=== PATIENT | female | born 1995 | race Caucasian/White ===

== ENCOUNTER 2017-05-01 18:26 | Inpatient (IN) | payer SELFPAY ==
[2017-05-01] MEDS ORDERED: Adacel (T-DAP) 0.5 ML VIAL ONE (18:32)
[2017-05-01] MEDS ORDERED: CEFAZOLIN/Water 2 GM/20 ML SYRINGE ONE (18:32)
[2017-05-01] MEDS ORDERED: hydrALAZINE 20 MG/ML VIAL SLOW IVP PRN (18:37)
[2017-05-01] MEDS ORDERED: Ondansetron HCl/PF 4 MG/2 ML Vial IVP PRN ×2 (18:37→20:49)
[2017-05-01] MEDS ORDERED: traMADol HCl 50 MG TAB PO PRN (18:37)
[2017-05-01] MEDS ORDERED: Dextrose 5% in Water 1,000 ML IV PRN (18:37)
[2017-05-01] MEDS ORDERED: Dextrose 50% Abboject 50 ML SYRINGE SLOW IVP PRN (18:37)
[2017-05-01] MEDS ORDERED: Ondansetron ODT 4 MG TAB PO PRN (18:37)
[2017-05-01] MEDS ORDERED: Midazolam HCl 2 mg/2 ml Vial ONE (18:40)
[2017-05-01 18:42] LABS: #Eosinphils 0.2 thou/uL (0.0-0.7); #Lymphocytes 2.9 thou/uL (1.20-3.40); #Monocytes 0.7 thou/uL (0.11-0.59); #Neutrophils 9.3 thou/uL (1.40-6.50); %Basophils 0.4 % (0.0-1.0); %Eosinophils 1.7 % (0.0-10.0); %Lymphocytes 22.1 % (21.0-51.0); %Monocytes 5.1 % (0.0-10.0); Hematocrit 37.4 % (36.0-47.0); Mean Platelet Volume 8.6 fL (7.4-10.4); Red Blood Cell (RBC) Count 4.18 mill/uL (4.20-5.40); White Blood Cell (WBC) Count 13.2 thou/uL (4.8-10.8)
[2017-05-01 18:50] LABS: PTT 25.5 SEC (22.9-36.1); Prothrombin Time 13.4 SEC (12.0-14.7)
[2017-05-01 18:58] LABS: ALT (SGPT) 9 U/L (8-55); AST (SGOT) 15 U/L (5-34); Alkaline Phosphatase 55 U/L (40-150); Anion Gap 12 mmol/L (10-20); BUN (Urea Nitrogen) 8 mg/dL (7.0-18.7); Bilirubin, Total 0.2 mg/dL (0.2-1.2); Calc. Creatinine Clearance 0 mL/min (70-130); Calcium 8.6 mg/dL (7.8-10.44); Carbon Dioxide 24 mmol/L (22-29); Chloride 108 mmol/L (98-107); Estimated GFR-MDRD Greater than 90; Globulin 2.4 g/dL (2.4-3.5); Protein, Total 6.4 g/dL (6.0-8.3)
[2017-05-01] MEDS ORDERED: Acetaminophen 500 MG TAB PO SCH (19:15)
[2017-05-01] MEDS ORDERED: Ketorolac Tromethamine 30 MG/ML VIAL ONE (19:21)
[2017-05-01] MEDS ORDERED: Propofol 200 MG/20 ML VIAL ONE (19:21)
[2017-05-01] MEDS ORDERED: Lidocaine 2% PF 10 ML AMP (For Epidural Use) ONE (19:21)
[2017-05-01] MEDS ORDERED: Dexamethasone 20 MG/5 ML VIAL ONE (19:21)
[2017-05-01] MEDS ORDERED: Glycopyrrolate 0.2 MG/ML 5 ML SYRINGE ONE (19:21)
[2017-05-01] MEDS ORDERED: Ondansetron HCl/PF 4 MG/2 ML Vial ONE (19:21)
[2017-05-01] MEDS ORDERED: Fentanyl 100 MCG/2 ML VIAL ONE ×2 (20:10→21:08)
[2017-05-01] MEDS ORDERED: Meperidine HCl/PF 25 MG/ML VIAL ONE (20:42)
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
[2017-05-01] MEDS ORDERED: Promethazine HCl 25 MG/ML VIAL SLOW IVP PRN (20:49)
[2017-05-01] MEDS ORDERED: Promethazine HCl 25 MG/ML VIAL IM PRN (20:49)
[2017-05-01] MEDS ORDERED: Promethazine HCl 25 MG/ML VIAL ONE (21:08)
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
[2017-05-01] MEDS: Sodium Chloride 0.9% 1,000 ML IV SCH (22:22)
[2017-05-01] MEDS: Senokot S 8.6-50 MG TAB PO SCH (22:22)
[2017-05-01] MEDS: Famotidine 20 MG TAB PO SCH (22:22)
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
[2017-05-01 22:50] VITALS: BMI 38.1
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
[2017-05-02] MEDS: Ketorolac Tromethamine 30 MG/ML VIAL IVP SCH ×4 (00:22→19:42)
[2017-05-02] MEDS: Acetaminophen 500 MG TAB PO SCH ×5 (00:22→16:47)
[2017-05-02] MEDS: CEFAZOLIN/Water 2 GM/20 ML SYRINGE SLOW IVP SCH ×3 (02:30→17:49)
[2017-05-02] MEDS: traMADol HCl 50 MG TAB PO PRN (02:38)
[2017-05-02] MEDS: Sodium Chloride 0.9% 1,000 ML IV SCH (04:48)
[2017-05-02 05:34] LABS: #Lymphocytes 0.9 thou/uL (1.20-3.40); #Monocytes 0.4 thou/uL (0.11-0.59); #Neutrophils 10.5 thou/uL (1.40-6.50); %Basophils 0.2 % (0.0-1.0); %Lymphocytes 7.2 % (21.0-51.0); %Monocytes 3.6 % (0.0-10.0); Hematocrit 34.6 % (36.0-47.0); Mean Platelet Volume 8.8 fL (7.4-10.4); Red Blood Cell (RBC) Count 3.84 mill/uL (4.20-5.40); White Blood Cell (WBC) Count 11.8 thou/uL (4.8-10.8)
[2017-05-02 06:01] LABS: Anion Gap 12 mmol/L (10-20); BUN (Urea Nitrogen) 7 mg/dL (7.0-18.7); Calc. Creatinine Clearance 225 mL/min (70-130); Carbon Dioxide 22 mmol/L (22-29); Chloride 104 mmol/L (98-107); Estimated GFR-MDRD Greater than 90; Magnesium 1.8 mg/dL (1.6-2.6); Phosphorus 2.8 mg/dL (2.3-4.7)
[2017-05-02] MEDS ORDERED: Sodium Chloride 0.9% 1,000 ML IV SCH (08:49)
[2017-05-02] MEDS ORDERED: Chloraseptic Spray 180 ml Bottle PO PRN (08:49)
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
[2017-05-02] MEDS: Famotidine 20 MG TAB PO SCH ×2 (09:53→19:54)
[2017-05-02] MEDS: Senokot S 8.6-50 MG TAB PO SCH ×2 (09:53→19:53)
[2017-05-02] MEDS: Morphine 4 MG/ML VIAL SLOW IVP PRN ×2 (09:53→19:50)
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
[2017-05-02] MEDS ORDERED: HYDROcodone/Acetaminophen 7.5/325 mg Tablet PO PRN (11:34)
[2017-05-02] MEDS ORDERED: Morphine 4 MG/ML VIAL SLOW IVP SCH (12:15)
--- NOTE | 2017-05-02 13:33 | PRG ---
DATE OF SERVICE: 05/02/2017 Please see Leila Santiago's note for today. SUBJECTIVE: Ms. Sherman is a 22-year-old female status post external fixator of open right tib/fib f racture. She is set to have a dressing change plus VAC placement today in the operating room. She has no complaints, otherwise. PHYSICAL EXAMINATION: VITAL SIGNS: Stable. She is afebrile. CHEST: Clear. HEART: Regular rate and rhythm. ABDOMEN: Soft, nontender. She has no obvious long bone deformity. ASSESSMENT: Open right tibia fibula fracture, status post external fixator. PLAN: Wound Care today. Plans per Ortho.
[2017-05-02] MEDS: HYDROcodone/Acetaminophen 7.5/325 mg Tablet PO PRN (15:48)
[2017-05-02] MEDS: Enoxaparin Sodium 40 MG/0.4 ML SYRINGE SC SCH (19:52)
[2017-05-03] MEDS: Ketorolac Tromethamine 30 MG/ML VIAL IVP SCH ×2 (00:26→05:31)
[2017-05-03] MEDS: Acetaminophen 500 MG TAB PO SCH ×2 (00:28→05:31)
[2017-05-03] MEDS ORDERED: Acetaminophen 500 MG TAB PO PRN (06:27)
[2017-05-03] MEDS ORDERED: Ibuprofen 800 MG TAB PO PRN (08:33)
[2017-05-03] MEDS: Famotidine 20 MG TAB PO SCH ×2 (08:45→20:43)
[2017-05-03] MEDS: HYDROcodone/Acetaminophen 7.5/325 mg Tablet PO PRN ×4 (08:45→23:19)
[2017-05-03] MEDS: Senokot S 8.6-50 MG TAB PO SCH ×2 (08:45→20:43)
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
[2017-05-03] MEDS: Enoxaparin Sodium 40 MG/0.4 ML SYRINGE SC SCH (20:42)
[2017-05-04] MEDS: HYDROcodone/Acetaminophen 7.5/325 mg Tablet PO PRN ×3 (07:49→19:15)
[2017-05-04] MEDS: Senokot S 8.6-50 MG TAB PO SCH ×2 (07:51→20:37)
[2017-05-04] MEDS: Famotidine 20 MG TAB PO SCH ×2 (07:51→20:37)
[2017-05-04] MEDS: Morphine 4 MG/ML VIAL SLOW IVP SCH (14:10)
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
[2017-05-04] MEDS: Enoxaparin Sodium 40 MG/0.4 ML SYRINGE SC SCH (20:37)
[2017-05-05] MEDS: HYDROcodone/Acetaminophen 7.5/325 mg Tablet PO PRN ×4 (02:11→21:27)
[2017-05-05] MEDS: Famotidine 20 MG TAB PO SCH ×2 (09:18→21:27)
[2017-05-05] MEDS: Senokot S 8.6-50 MG TAB PO SCH ×2 (09:18→21:27)
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
[2017-05-05] MEDS: Enoxaparin Sodium 40 MG/0.4 ML SYRINGE SC SCH (21:27)
[2017-05-06] MEDS: HYDROcodone/Acetaminophen 7.5/325 mg Tablet PO PRN ×4 (05:47→22:04)
[2017-05-06] MEDS: Senokot S 8.6-50 MG TAB PO SCH ×2 (08:36→20:12)
[2017-05-06] MEDS: Famotidine 20 MG TAB PO SCH ×2 (08:36→20:12)
[2017-05-06] MEDS: Morphine 4 MG/ML VIAL SLOW IVP SCH (10:13)
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
[2017-05-06] MEDS: Enoxaparin Sodium 40 MG/0.4 ML SYRINGE SC SCH (20:13)
[2017-05-07] MEDS: HYDROcodone/Acetaminophen 7.5/325 mg Tablet PO PRN ×3 (08:17→22:09)
[2017-05-07] MEDS: Famotidine 20 MG TAB PO SCH ×2 (08:17→22:01)
[2017-05-07] MEDS: Senokot S 8.6-50 MG TAB PO SCH ×2 (08:17→22:01)
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
[2017-05-07] MEDS: Enoxaparin Sodium 40 MG/0.4 ML SYRINGE SC SCH (22:02)
[2017-05-08] MEDS: Famotidine 20 MG TAB PO SCH ×2 (09:07→21:26)
[2017-05-08] MEDS: HYDROcodone/Acetaminophen 7.5/325 mg Tablet PO PRN ×2 (09:07→21:25)
[2017-05-08] MEDS: Senokot S 8.6-50 MG TAB PO SCH ×2 (09:07→21:26)
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
[2017-05-08] MEDS: Enoxaparin Sodium 40 MG/0.4 ML SYRINGE SC SCH (21:26)
[2017-05-09 05:37] LABS: #Basophils 0.1 thou/uL (0.0-0.2); #Eosinphils 0.3 thou/uL (0.0-0.7); #Lymphocytes 2.7 thou/uL (1.20-3.40); #Monocytes 0.7 thou/uL (0.11-0.59); %Basophils 0.6 % (0.0-1.0); %Eosinophils 3.9 % (0.0-10.0); %Lymphocytes 30.5 % (21.0-51.0); %Monocytes 8.2 % (0.0-10.0); Mean Platelet Volume 8.2 fL (7.4-10.4); Red Blood Cell (RBC) Count 3.56 mill/uL (4.20-5.40); White Blood Cell (WBC) Count 8.8 thou/uL (4.8-10.8)
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
[2017-05-09] MEDS: Senokot S 8.6-50 MG TAB PO SCH ×2 (08:12→23:54)
[2017-05-09] MEDS: Famotidine 20 MG TAB PO SCH ×2 (08:14→23:54)
[2017-05-09] MEDS: HYDROcodone/Acetaminophen 7.5/325 mg Tablet PO PRN (08:17)
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
[2017-05-09] MEDS ORDERED: Vancomycin HCl 500 MG VIAL ONE (17:48)
[2017-05-09] MEDS ORDERED: Midazolam HCl 2 mg/2 ml Vial ONE ×2 (18:09→18:55)
[2017-05-09] MEDS ORDERED: Sodium Chloride 0.9% 10 ML ONE (18:55)
[2017-05-09] MEDS ORDERED: Bupivacaine PF 0.5% 30 ML VIAL ONE (18:55)
[2017-05-09] MEDS ORDERED: Fentanyl 100 MCG/2 ML VIAL ONE ×3 (18:55→21:23)
[2017-05-09] MEDS ORDERED: Bacitracin Zinc Ointment 30 gm TUBE ONE (18:55)
[2017-05-09] MEDS ORDERED: Ondansetron HCl/PF 4 MG/2 ML Vial ONE (19:17)
[2017-05-09] MEDS ORDERED: Lidocaine 1% PF 5 ML VIAL ONE (19:17)
[2017-05-09] MEDS ORDERED: Propofol 200 MG/20 ML VIAL ONE (19:17)
[2017-05-09] MEDS ORDERED: Ketorolac Tromethamine 30 MG/ML VIAL ONE (19:17)
[2017-05-09] MEDS ORDERED: Dexamethasone 20 MG/5 ML VIAL ONE (19:17)
[2017-05-09] MEDS ORDERED: Sodium Chloride 0.9% 40 ML ONE (19:24)
[2017-05-09] MEDS ORDERED: Thrombin 5000 UNITS/5 ML VIAL ONE ×3 (19:56→20:22)
[2017-05-09] MEDS ORDERED: Promethazine HCl 25 MG/ML VIAL IM PRN ×2 (20:11→21:50)
[2017-05-09] MEDS ORDERED: Meperidine HCl/PF 25 MG/ML VIAL SLOW IVP PRN (20:11)
[2017-05-09] MEDS ORDERED: Ondansetron HCl/PF 4 MG/2 ML Vial IVP PRN (20:11)
[2017-05-09] MEDS ORDERED: Promethazine HCl 25 MG/ML VIAL SLOW IVP PRN (20:11)
[2017-05-09] MEDS ORDERED: Pregabalin 50 MG CAP PO SCH ×2 (21:45→22:00)
[2017-05-09] MEDS ORDERED: HYDROcodone/Acetaminophen 7.5/325 mg Tablet PO PRN ×2 (21:47)
[2017-05-09] MEDS ORDERED: Meperidine HCl/PF 25 MG/ML VIAL IM PRN (21:48)
[2017-05-09] MEDS ORDERED: Morphine 4 MG/ML VIAL SLOW IVP PRN (21:51)
[2017-05-09] MEDS ORDERED: Vancomycin HCl 750 MG in Sodium Chloride 0.9% 250 ML 250 ML IVPB SCH (22:00)
[2017-05-09] MEDS ORDERED: Ketorolac Tromethamine 30 MG/ML VIAL IVP SCH (23:59)
[2017-05-10] MEDS: Ketorolac Tromethamine 30 MG/ML VIAL IVP SCH ×3 (02:31→14:48)
[2017-05-10] MEDS ORDERED: Pregabalin 50 MG CAP PO SCH ×2 (04:00→12:00)
[2017-05-10] MEDS ORDERED: Vancomycin HCl 750 MG in Sodium Chloride 0.9% 250 ML 250 ML IVPB SCH (06:00)
[2017-05-10] MEDS: Famotidine 20 MG TAB PO SCH (08:00)
[2017-05-10] MEDS: Senokot S 8.6-50 MG TAB PO SCH (08:01)
[2017-05-10] MEDS: traMADol HCl 50 MG TAB PO PRN (08:42)
--- NOTE | 2017-05-10 14:44 | OP ---
DATE OF PROCEDURE: 05/09/2017 PREOPERATIVE DIAGNOSIS: Right leg wound, overlying a grade II tibia fracture, already undergone 2 de bridements and internal fixation with intramedullary nail. POSTOPERATIVE FINDINGS: 1. Hematoma approximately 15 mL on the very distal posterior edge of the wound. 2. Wound edge necrosis and underlying necrosis of a patch of skin that led to a wound size initially of 5 x 3 cm and ended up being 14 x 10 before we found bleeding and good tissue and could completely evacuate the hematoma that was found. PROCEDURES: Therefore, procedures as follows: 1. A 140 cm2 split-thickness skin graft harvest from the right anterior lateral thigh and placed on the right medial and posterior medial leg. 2. Evacuation of hematoma approximately 15 mL. 3. Debridement of wound down to, but not penetrating the fascia[place] [address] depth using t he following instruments. 1. Forsyth blade. 2. A 11-blade knife. 3. Tenotomy scissors. 4. Grimes scissors. A. Bovie. B. Technique Excisional. C. Findings, minimal muscle edge necrosis, but marked amount of fat necrosis and a surrounding hemat saloni underneath these. The that led to wound flap edge necrosis of 15 mL. 4. No gross infection found and circulation remained intact underneath with excellent bleeding at th e site once the debridement was completed. SPECIMEN REMOVED: Necrotic fat with deep soleus and gastroc fascia underneath intact. ESTIMATED BLOOD LOSS: 50 mL TOURNIQUET TIME: Zero. INDICATIONS: The patient returns for stage wound management, her third debridement with open leg wou nd, which over the head and measured nail by my partner, Dr. Loya, and it was found that the soleus muscle completely covered the tibia, so there was no bone seen and we did not have to violate the mi dline for debridement back to bleeding bed. No gross defects found. DESCRIPTION OF PROCEDURE: After successful general LMA technique by MAC anesthesia, limb was prepped and draped. We prepped all the way up to the inguinal line because we knew we had to make a large s kin graft. This was especially after we saw that the central portion of the wound itself that was op ened was only 5 x 3 cm. It was surrounded by an area of at least 12 x 12 full skin edge necrosis. W hen we began debriding the edge, the anterior portion of the edge of the tenuous wound within normal skin was easily resected leaving a rim of normal skin over 2 cm away from the fracture site. Underne ath this distally with a hematoma with eunice fat necrosis and this had to be debrided completely thro ugh a leading edge, which was clean. Then, we performed the same type of debridement, excisional cecil hnique, removal of hematoma on the entire flap and now the soleus was visible, only intact fat was le ft, and there was marked amount of available skin on the proximal thigh, which had been prepped. We irrigated this area with 3 liters of normal saline and Pulsavac pressure had excellent bleeding, we t hen harvested a total of 140 cm2 to fill the 10 x 14 wound defect and this was done with a Ny hoa matome that was powered depth to 0.20 cm without complication. We will have to harvest it from the r ight anterior lateral thigh and placed in it on the open wound, we were able to see thrombin-soaked G elfoam placed on the donor site now. We then carefully stapled the skin graft down to include filling in defects that might be left becaus e there was somewhat asymmetrical fat content in the lower leg. The staple used to secure this skin graft and it covered the entire region without undue tension, thrombin-soaked Gelfoam on both the cut s made for the skin graft, and then the patient had a thrombin-soaked Gelfoam covered with a Tegaderm held on by Mastisol, bulky dressing applied over the leg, and then placed in a plaster splint that w as to maintain ankle position because it will be at least 6 weeks before any kind of motion will be p ut on his leg. The patient then had the skin graft that was applied to the right thigh bolstered down to appropriate ly fill out any depth defects, mineral oil over bacitracin and Adaptic was placed on this, and then t he patient left the operating room without evidence of anesthetic or operative complication and a sug ar tong posterior splint was applied.
[2017-05-10 16:06] VITALS: BP 103/72; TEMP 98.2
[2017-05-10] MEDS ORDERED: Vancomycin HCl 750 MG, Admixture Fee 1 EACH in Sodium Chloride 0.9% 250 ML 250 ML IVPB SCH (20:00)
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
[2017-05-15] MEDS ORDERED: Ibuprofen 800 MG TAB PO PRN (06:00)
== END 2017-05-10 16:51 | disposition home or self-care (01) | DRG 464 ==
LOC: EDBD 18:26 → ERS 18:26 → SURG A 18:37
PROVIDERS: ADMIT Surgery; ATTEND Surgery
PROC: 0QBG0ZZ Excision of Right Tibia, Open Approach (ICD-10-PCS; 2017-05-01)
PROC: 0QSG06Z Reposition Right Tibia with Intramedullary Internal Fixation Device, Open Approach (ICD-10-PCS; 2017-05-01)
PROC: 0HRKX74 Replacement of Right Lower Leg Skin with Autologous Tissue Substitute, Partial Thickness, External Approach (ICD-10-PCS; principal; 2017-05-09)
PROC: 0HBHXZZ Excision of Right Upper Leg Skin, External Approach (ICD-10-PCS; 2017-05-09)
PROC: 0JBN0ZZ Excision of Right Lower Leg Subcutaneous Tissue and Fascia, Open Approach (ICD-10-PCS; 2017-05-09)
DX: S82.301 Unspecified fracture of lower end of right tibia (principal); L76.32 Postprocedural hematoma of skin and subcutaneous tissue following other procedure; I96 Gangrene, not elsewhere classified; L76.82 Other postprocedural complications of skin and subcutaneous tissue; E66.9 Obesity, unspecified; Y93.I9 Activity, other involving external motion; Z68.38 Body mass index [BMI] 38.0-38.9, adult; V86.65XA Passenger of 3- or 4- wheeled all-terrain vehicle (ATV) injured in nontraffic accident, initial encounter; F17.210 Nicotine dependence, cigarettes, uncomplicated; G89.11 Acute pain due to trauma; Z23 Encounter for immunization; F41.9 Anxiety disorder, unspecified; F32.9 Major depressive disorder, single episode, unspecified
CPT/HCPCS: 36415; 76001; 80048; 80053; 80307; 82150; 83735; 84100; 84703; 85025; 85610; 85730; 86850; 86900; 86901; 90471; 90715; 96374; 99406; A4216; C1713; C1769; G0390; G8978-GP-CL; G8979-GP-CJ; G8987-GO-CK; G8988-GO-CK; G8989-GO-CK; J1100; J1650; J1885; J2001; J2175; J2250; J2270; J2405; J2550; J2704; J3010; J3370; J3490; J7050; L4386; S0020

== ENCOUNTER 2017-07-14 20:52 | Inpatient (IN) | payer MEDICAID, OTHER ==
[2017-07-14 21:46] LABS: #Lymphocytes 1.3 thou/uL (1.20-3.40); #Monocytes 0.9 thou/uL (0.11-0.59); #Neutrophils 7.6 thou/uL (1.40-6.50); %Basophils 0.1 % (0.0-1.0); %Eosinophils 0.1 % (0.0-10.0); %Lymphocytes 13.2 % (21.0-51.0); %Monocytes 9.1 % (0.0-10.0); %Neutrophils 77.5 % (42.0-75.0); Hemoglobin 12.9 g/dL (12.0-16.0); Mean Corpuscular HGB CONC 33.2 g/dL (32.0-36.0); Mean Corpuscular Hemoglobin 27.2 pg (27.0-31.0); Mean Corpuscular Volume 81.9 fl (81.0-99.0); Mean Platelet Volume 10.2 fL (7.4-10.4); Platelet Count 181 thou/uL (130-400); RBC Distribution Width 13.3 % (11.5-14.5); Red Blood Cell (RBC) Count 4.73 mill/uL (4.20-5.40); White Blood Cell (WBC) Count 9.9 thou/uL (4.8-10.8)
[2017-07-14] MEDS ORDERED: Ondansetron HCl/PF 4 MG/2 ML Vial ONE (22:05)
[2017-07-14] MEDS ORDERED: Morphine 4 MG/ML Carpuject ONE (22:05)
[2017-07-14 22:07] LABS: ALT (SGPT) 23 U/L (8-55); AST (SGOT) 37 U/L (5-34); Alkaline Phosphatase 115 U/L (40-150); Anion Gap 17 mmol/L (10-20); BUN (Urea Nitrogen) 6 mg/dL (7.0-18.7); Bilirubin, Total 0.8 mg/dL (0.2-1.2); Calc. Creatinine Clearance 0 mL/min (70-130); Calcium 9.3 mg/dL (7.8-10.44); Carbon Dioxide 22 mmol/L (22-29); Chloride 99 mmol/L (98-107); Estimated GFR-MDRD Greater than 90; Globulin 3.4 g/dL (2.4-3.5); Glucose 97 mg/dL (70-105); Potassium 3.4 mmol/L (3.5-5.1); Protein, Total 7.4 g/dL (6.0-8.3); Sodium 135 mmol/L (136-145)
[2017-07-14] MEDS ORDERED: Piperacillin/Tazobactam 4.5 GM in Sodium Chloride 0.9% 100 ML IVPB SCH (22:15)
[2017-07-15] MEDS ORDERED: Ondansetron ODT 4 MG TAB SL PRN (00:09)
[2017-07-15] MEDS ORDERED: Ondansetron HCl/PF 4 MG/2 ML Vial IVP PRN ×2 (00:09→12:20)
[2017-07-15] MEDS ORDERED: Morphine 2 MG/ML SYRINGE SLOW IVP PRN ×2 (00:10→00:11)
[2017-07-15] MEDS: Sodium Chloride 0.9% 1,000 ML IV SCH ×2 (00:35→11:34)
[2017-07-15 01:30] VITALS: BMI 36.8
[2017-07-15] MEDS ORDERED: Piperacillin/Tazobactam 4.5 GM in Sodium Chloride 0.9% 100 ML IVPB SCH (06:00)
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
--- NOTE | 2017-07-15 08:31 | RAD ---
THREE VIEES OF THE RIGHT FORELEG: INDICATION: History of tibia fracture. COMPARISON: Prior exam dated 05/01/17. FINDINGS: Since the comparison examination, there has been interval placement of an intramedullary bhavik. The fr acture alignment is near anatomic. The fracture demonstrates some peripheral bone callus formation w ithout complete healing. The distal interlock screw is fractured. There is soft tissue swelling jaron rounding the fracture site and previously seen wound defect involving the posterolateral aspect of th e distal foreleg. Superimposed infection cannot be excluded. IMPRESSION: 1. Ununited comminuted distal tibia fracture. 2. Fractured distal interlock screw of the intramedullary bhavik. 3. Soft tissue swelling seen surrounding the fracture site and site of the open wound involving the posterolateral aspect of the distal right foreleg on the prior examination dated 05/01/17. Superimpo sed infection cannot be entirely excluded. POS: KIYA
[2017-07-15] MEDS ORDERED: Fentanyl 100 MCG/2 ML VIAL ONE ×2 (11:20→13:15)
[2017-07-15] MEDS ORDERED: Midazolam HCl 2 mg/2 ml Vial ONE (11:20)
[2017-07-15] MEDS ORDERED: Neomycin-Polymyxin 1 ML AMP ONE (11:27)
[2017-07-15] MEDS ORDERED: Ondansetron HCl/PF 4 MG/2 ML Vial ONE ×3 (11:47→14:04)
[2017-07-15] MEDS ORDERED: HYDROcodone/Acetaminophen 10/325 mg Tablet PO PRN (11:56)
[2017-07-15] MEDS ORDERED: traMADol HCl 50 MG TAB PO PRN (11:57)
[2017-07-15] MEDS ORDERED: Piperacillin/Tazobactam 3.375 GM in Sodium Chloride 0.9% 100 ML IVPB SCH ×2 (12:00→14:00)
[2017-07-15] MEDS ORDERED: HYDROmorphone 2 MG/ML VIAL SLOW IVP PRN (12:20)
[2017-07-15] MEDS ORDERED: Meperidine HCl/PF 25 MG/ML VIAL SLOW IVP PRN (12:20)
[2017-07-15] MEDS ORDERED: Promethazine HCl 25 MG/ML VIAL IM/IV PRN (12:20)
[2017-07-15] MEDS ORDERED: Lidocaine 1% PF 5 ML VIAL ONE (14:04)
[2017-07-15] MEDS ORDERED: Ketorolac Tromethamine 30 MG/ML VIAL ONE (14:04)
[2017-07-15] MEDS ORDERED: Propofol 200 MG/20 ML VIAL ONE (14:04)
[2017-07-15] MEDS ORDERED: Dexamethasone 20 MG/5 ML VIAL ONE (14:04)
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
[2017-07-15] MEDS: Piperacillin/Tazobactam 3.375 GM in Sodium Chloride 0.9% 100 ML IVPB SCH (17:32)
[2017-07-15] MEDS: Vancomycin HCl 1 GM in Premix Bag 1 BAG IVPB SCH (21:00)
[2017-07-16] MEDS: Piperacillin/Tazobactam 3.375 GM in Sodium Chloride 0.9% 100 ML IVPB SCH ×3 (00:34→13:00)
[2017-07-16 04:49] LABS: #Lymphocytes 0.6 thou/uL (1.20-3.40); #Monocytes 0.6 thou/uL (0.11-0.59); #Neutrophils 6.4 thou/uL (1.40-6.50); %Basophils 0.1 % (0.0-1.0); %Lymphocytes 8.3 % (21.0-51.0); %Monocytes 8.4 % (0.0-10.0); %Neutrophils 83.1 % (42.0-75.0); Hemoglobin 10.5 g/dL (12.0-16.0); Mean Corpuscular HGB CONC 32.4 g/dL (32.0-36.0); Mean Corpuscular Hemoglobin 26.9 pg (27.0-31.0); Mean Corpuscular Volume 83.1 fl (81.0-99.0); Mean Platelet Volume 11.2 fL (7.4-10.4); Platelet Count 154 thou/uL (130-400); White Blood Cell (WBC) Count 7.7 thou/uL (4.8-10.8)
[2017-07-16] MEDS: Vancomycin HCl 1 GM in Premix Bag 1 BAG IVPB SCH ×2 (09:05→21:06)
[2017-07-16 20:36] LABS: Vancomycin, Trough 20.5 ug/mL
[2017-07-16] MEDS: Enoxaparin Sodium 40 MG/0.4 ML SYRINGE SC SCH (21:06)
[2017-07-17] MEDS: Morphine 2 MG/ML SYRINGE SLOW IVP PRN ×2 (02:34→23:46)
[2017-07-17] MEDS: Vancomycin HCl 1 GM in Premix Bag 1 BAG IVPB SCH (09:58)
[2017-07-17 21:12] LABS: Vancomycin, Trough 31.4 ug/mL
[2017-07-17] MEDS: Enoxaparin Sodium 40 MG/0.4 ML SYRINGE SC SCH (23:45)
[2017-07-18] MEDS: Vancomycin HCl 1 GM in Premix Bag 1 BAG IVPB SCH (00:21)
[2017-07-18] MEDS: Ondansetron HCl/PF 4 MG/2 ML Vial SLOW IVP PRN (04:26)
[2017-07-18] MEDS ORDERED: Fentanyl 100 MCG/2 ML VIAL ONE ×2 (06:20→08:36)
[2017-07-18] MEDS ORDERED: Maxitrol 0.1% Opth Oint 3.5 GM TUBE ONE (06:37)
[2017-07-18] MEDS ORDERED: Neomycin-Polymyxin 1 ML AMP ONE ×2 (06:40→07:32)
[2017-07-18] MEDS ORDERED: Sodium Chloride 0.9% 10 ML ONE (06:54)
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
[2017-07-18] MEDS ORDERED: Promethazine HCl 25 MG/ML VIAL SLOW IVP PRN (08:44)
[2017-07-18] MEDS ORDERED: Promethazine HCl 25 MG/ML VIAL IM PRN (08:44)
[2017-07-18] MEDS ORDERED: Ondansetron HCl/PF 4 MG/2 ML Vial IVP PRN (08:44)
[2017-07-18] MEDS ORDERED: Vancomycin HCl 1 GM in Premix Bag 1 BAG IVPB SCH (09:00)
[2017-07-18] MEDS ORDERED: Metoclopramide HCl 10 MG/2 ML VIAL ONE (12:29)
[2017-07-18] MEDS ORDERED: Ketorolac Tromethamine 30 MG/ML VIAL ONE (12:29)
[2017-07-18] MEDS ORDERED: ePHEDrine/0.9% NaCl/PF SYRINGE 50 mg/10 ml ONE (12:29)
[2017-07-18] MEDS ORDERED: Dexamethasone 20 MG/5 ML VIAL ONE (12:29)
[2017-07-18] MEDS ORDERED: Lidocaine 1% PF 5 ML VIAL ONE (12:29)
[2017-07-18] MEDS ORDERED: Ondansetron HCl/PF 4 MG/2 ML Vial ONE (12:29)
[2017-07-18] MEDS ORDERED: Propofol 200 MG/20 ML VIAL ONE (12:29)
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
[2017-07-18] MEDS: cefTRIAXone\\ROCEPHIN 2 GM in Sodium Chloride 0.9% 100 ML IVPB SCH (14:32)
[2017-07-18] MEDS ORDERED: Heparin 1,000 UNITS/ML VIAL ONE (15:49)
[2017-07-18] MEDS ORDERED: Mag-Al 1200 mg/1200 mg/30 ML UDCUP PO PRN (18:39)
[2017-07-18] MEDS: Enoxaparin Sodium 40 MG/0.4 ML SYRINGE SC SCH (21:00)
[2017-07-19] MEDS: Morphine 5 MG/ML SYRINGE SLOW IVP PRN ×2 (00:01→20:45)
[2017-07-19 04:36] LABS: #Eosinphils 0.1 thou/uL (0.0-0.7); #Lymphocytes 1.7 thou/uL (1.20-3.40); #Monocytes 0.9 thou/uL (0.11-0.59); #Neutrophils 5.3 thou/uL (1.40-6.50); %Basophils 0.1 % (0.0-1.0); %Eosinophils 1.2 % (0.0-10.0); %Lymphocytes 21.7 % (21.0-51.0); %Monocytes 10.9 % (0.0-10.0); %Neutrophils 66.1 % (42.0-75.0); Hemoglobin 9.5 g/dL (12.0-16.0); Mean Corpuscular HGB CONC 32.9 g/dL (32.0-36.0); Mean Corpuscular Hemoglobin 27.1 pg (27.0-31.0); Mean Corpuscular Volume 82.4 fl (81.0-99.0); Platelet Count 210 thou/uL (130-400); RBC Distribution Width 12.9 % (11.5-14.5); Red Blood Cell (RBC) Count 3.52 mill/uL (4.20-5.40)
[2017-07-19 04:47] LABS: Anion Gap 12 mmol/L (10-20); BUN (Urea Nitrogen) 14 mg/dL (7.0-18.7); Calc. Creatinine Clearance 59 mL/min (70-130); Calcium 8.1 mg/dL (7.8-10.44); Carbon Dioxide 25 mmol/L (22-29); Chloride 106 mmol/L (98-107); Estimated GFR-MDRD 26; Glucose 92 mg/dL (70-105); Potassium 3.5 mmol/L (3.5-5.1); Sodium 139 mmol/L (136-145)
--- NOTE | 2017-07-19 08:34 | SPC ---
LEFT PICC LINE WITH ULTRASOUND GUIDANCE: History: Infection. IV access required. Comparison: None. Exposure: 0.4 minutes, 356 mGy*cm^2. FINDINGS: Successful left upper extremity PICC line placement with ultrasound guidance. Distal tip is in the ri ght atrium. Trim length is 45 cm. Single lumen catheter does flush and aspirate without difficulty. Technique: Consent obtained for a left upper extremity PICC line with ultrasound guidance. Left arm was prepped and draped in sterile fashion. 1% Lidocaine buffered with sodium bicarbonate used for local anesthesi a. Under ultrasound guidance, micropuncture needle was used to canalize the basilic vein. A 0.01 guid e wire was advanced to the level of the right atrium. Under fluoroscopy, the wire was advanced into t he inferior vena cava to document venous access. The wire was pulled back to the right atrium. Tract was dilated. Single lumen 5 [place] catheter was advanced over the wire. Wire was removed. Catheter do es flush and aspirate without difficulty. Distal tip is in the right atrium. Trim length is 45 cm. IMPRESSION: Successful left upper extremity PICC line placement with ultrasound guidance. POS: OFF
[2017-07-19] MEDS: cefTRIAXone\\ROCEPHIN 2 GM in Sodium Chloride 0.9% 100 ML IVPB SCH (11:42)
[2017-07-19] MEDS: Enoxaparin Sodium 40 MG/0.4 ML SYRINGE SC SCH (20:39)
[2017-07-20] MEDS: Ondansetron HCl/PF 4 MG/2 ML Vial SLOW IVP PRN ×3 (03:08→20:10)
[2017-07-20] MEDS: cefTRIAXone\\ROCEPHIN 2 GM in Sodium Chloride 0.9% 100 ML IVPB SCH (11:53)
[2017-07-20] MEDS: Morphine 5 MG/ML SYRINGE SLOW IVP PRN (20:08)
[2017-07-20] MEDS: Enoxaparin Sodium 40 MG/0.4 ML SYRINGE SC SCH (20:09)
[2017-07-21] MEDS: Ondansetron HCl/PF 4 MG/2 ML Vial SLOW IVP PRN ×2 (08:21→14:07)
[2017-07-21 11:39] VITALS: BP 117/79
[2017-07-21] MEDS: cefTRIAXone\\ROCEPHIN 2 GM in Sodium Chloride 0.9% 100 ML IVPB SCH (11:46)
[2017-07-21] MEDS: Morphine 5 MG/ML SYRINGE SLOW IVP PRN (12:20)
[2017-07-21 16:16] VITALS: TEMP 98.6
--- NOTE | 2017-07-22 15:37 | DIS ---
DATE OF ADMISSION: 07/14/2017 DATE OF DISCHARGE: 07/21/2017 PREOPERATIVE DIAGNOSIS: Right open tibia fracture with wound infection. POSTOPERATIVE DIAGNOSIS: Right open tibia fracture with wound infection. PROCEDURE 1. Irrigation and debridement of right tibia wound infection. 2. Hardware removal from right tibia. PROCEDURE: The first procedure was done on 07/15/2017. Second procedure was completed on 07/18/2017 . PREOPERATIVE DIAGNOSIS: Infected related to previous open right tibial fracture. POSTOPERATIVE DIAGNOSIS: Infected related to previous right open tibial fracture. PROCEDURE: Irrigation and debridement of right lower extremity wound with open tibial fracture closu re. HOSPITAL COURSE: Hospital stay was unremarkable. The patient was consulted with Dr. Oconnor and wound care. She had no postoperative complications and no issues while she was in the hospital. Pain was otherwise controlled, activity level was good. Vital signs were stable throughout her stay. DISCHARGE CONDITION: Good/stable. DISPOSITION: Home with family. FOLLOWUP: Followup would be in 7 days with our [facility]. She would need to follow up with Dr Ronel Oconnor regarding her infection. Wound care would see her in the hospital for dressing changes. DISCHARGE MEDICATIONS: Given with usage instructions via our staff and Dr. Oconnor' staff, she would c all or follow up sooner if there are any problems and/or concerns. Edwin Seay PA-C dictating for Jesus Ambriz M.D.
== END 2017-07-21 16:20 | disposition home or self-care (01) | DRG 857 ==
LOC: ERS 20:52 → SURG A 07-15 00:02
PROVIDERS: ADMIT Orthopaedic Surgery; ATTEND Orthopaedic Surgery
PROC: 0QBG0ZZ Excision of Right Tibia, Open Approach (ICD-10-PCS; principal; 2017-07-18)
PROC: 0HBKXZZ Excision of Right Lower Leg Skin, External Approach (ICD-10-PCS; 2017-07-18)
PROC: 0QPG04Z Removal of Internal Fixation Device from Right Tibia, Open Approach (ICD-10-PCS; 2017-07-18)
PROC: 02H633Z Insertion of Infusion Device into Right Atrium, Percutaneous Approach (ICD-10-PCS; 2017-07-18)
PROC: B244ZZZ Ultrasonography of Right Heart (ICD-10-PCS; 2017-07-18)
DX: T81.4XXA Infection following a procedure, initial encounter (principal); M86.9 Osteomyelitis, unspecified; V86.99XD Unspecified occupant of other special all-terrain or other off-road motor vehicle injured in nontraffic accident, subsequent encounter; F17.210 Nicotine dependence, cigarettes, uncomplicated; B95.61 Methicillin susceptible Staphylococcus aureus infection as the cause of diseases classified elsewhere
CPT/HCPCS: 36415; 36569; 80048; 80053; 80202; 83605; 85025; 85652; 86140; 87040; 87070; 87077; 87186; 87205; 96365; 96367; 96375; 99406; J2270; A4216; C1751; G8978-GP-CJ; G8979-GP-CJ; G8980-GP-CJ; J0131; J0696; J1100; J1644; J1650; J1885; J2001; J2250; J2405; J2543; J2704; J2765; J3010; J3370; J7050

== ENCOUNTER 2017-07-28 09:06 | Outpatient (CLI) | payer SELFPAY ==
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
== END 2017-07-28 09:07 | disposition home or self-care (01) ==
LOC: WCC 09:06
PROVIDERS: ATTEND Family Medicine
DX: T81.89XD Other complications of procedures, not elsewhere classified, subsequent encounter (principal); M86.10 Other acute osteomyelitis, unspecified site; Z86.2 Personal history of diseases of the blood and blood-forming organs and certain disorders involving the immune mechanism
CPT/HCPCS: 97602; 99203; G0463

== ENCOUNTER 2017-08-04 08:34 | Outpatient (CLI) | payer OTHER | END 2017-08-04 08:35 | disposition home or self-care (01) | LOC: WCC 08:34 | PROVIDERS: ATTEND Family Medicine | DX: T81.89XD Other complications of procedures, not elsewhere classified, subsequent encounter (principal) | CPT/HCPCS: 97602 ==

== ENCOUNTER 2017-08-08 18:25 | Inpatient (IN) | payer OTHER ==
[2017-08-08 18:50] VITALS: BMI 36.6
[2017-08-08] MEDS ORDERED: HYDROcodone/Acetaminophen 10/325 mg Tablet PO PRN (19:13)
[2017-08-08] MEDS ORDERED: Ondansetron PF 4 MG/2 ML Vial SLOW IVP PRN (19:13)
[2017-08-08] MEDS ORDERED: Vancomycin HCl 1 GM in Premix Bag 1 BAG IVPB SCH (19:15)
[2017-08-08] MEDS ORDERED: Acetaminophen 500 MG TAB PO PRN (19:17)
[2017-08-08 19:32] LABS: #Basophils 0.1 thou/uL (0.0-0.2); #Eosinphils 0.5 thou/uL (0.0-0.7); #Lymphocytes 1.8 thou/uL (1.20-3.40); #Monocytes 0.6 thou/uL (0.11-0.59); #Neutrophils 4.4 thou/uL (1.40-6.50); %Eosinophils 6.3 % (0.0-10.0); %Lymphocytes 24.3 % (21.0-51.0); %Monocytes 8.1 % (0.0-10.0); %Neutrophils 60.4 % (42.0-75.0); Hemoglobin 10.8 g/dL (12.0-16.0); Mean Corpuscular HGB CONC 32.6 g/dL (32.0-36.0); Mean Corpuscular Hemoglobin 26.9 pg (27.0-31.0); Mean Corpuscular Volume 82.5 fl (81.0-99.0); Mean Platelet Volume 8.7 fL (7.4-10.4); Platelet Count 269 thou/uL (130-400); RBC Distribution Width 14.9 % (11.5-14.5); Red Blood Cell (RBC) Count 4.02 mill/uL (4.20-5.40); White Blood Cell (WBC) Count 7.2 thou/uL (4.8-10.8)
[2017-08-08 19:52] LABS: Anion Gap 11 mmol/L (10-20); BUN (Urea Nitrogen) 11 mg/dL (7.0-18.7); Calc. Creatinine Clearance 197 mL/min (70-130); Calcium 9.2 mg/dL (7.8-10.44); Carbon Dioxide 27 mmol/L (22-29); Chloride 103 mmol/L (98-107); Estimated GFR-MDRD Greater than 90; Glucose 84 mg/dL (70-105); Potassium 3.9 mmol/L (3.5-5.1); Sodium 137 mmol/L (136-145)
[2017-08-08] MEDS: Sodium Chloride 0.9% 1,000 ML IV SCH (20:56)
[2017-08-09] MEDS: Sodium Chloride 0.9% 1,000 ML IV SCH ×2 (07:14→15:25)
[2017-08-09] MEDS ORDERED: Fentanyl 100 MCG/2 ML VIAL ONE ×3 (14:09→17:05)
[2017-08-09] MEDS ORDERED: Midazolam HCl 2 mg/2 ml Vial ONE (14:09)
[2017-08-09] MEDS ORDERED: Morphine 10 MG/ML VIAL ONE (15:41)
[2017-08-09] MEDS ORDERED: Dexamethasone 20 MG/5 ML VIAL ONE (16:29)
[2017-08-09] MEDS ORDERED: Lidocaine 1% PF 5 ML VIAL ONE (16:29)
[2017-08-09] MEDS ORDERED: diphenhydrAMINE 50 MG/ML VIAL ONE (16:29)
[2017-08-09] MEDS ORDERED: Ketorolac Tromethamine 30 MG/ML VIAL ONE (16:29)
[2017-08-09] MEDS ORDERED: Metoclopramide HCl 10 MG/2 ML VIAL ONE (16:29)
[2017-08-09] MEDS ORDERED: PROPOFOL 200 MG/20 ML VIAL ONE (16:29)
[2017-08-09] MEDS ORDERED: Ondansetron PF 4 MG/2 ML Vial ONE (16:29)
[2017-08-09] MEDS ORDERED: Promethazine HCl 25 MG/ML VIAL IM PRN (16:50)
[2017-08-09] MEDS ORDERED: Promethazine HCl 25 MG/ML VIAL SLOW IVP PRN (16:50)
[2017-08-09] MEDS ORDERED: Ondansetron HCl/PF 4 MG/2 ML Vial IVP PRN (16:50)
--- NOTE | 2017-08-09 17:04 | RAD ---
TWO VIEWS OF THE RIGHT TIBIA AND FIBULA 08/09/17 COMPARISON: None. HISTORY: Hardware removal. FINDINGS/IMPRESSION: Two views of the right tibia/fibula shows hardware in the tibia. Skin adrienne are seen. There is a sm all amount of callus adjacent to the fracture. POS: CLARI
[2017-08-09] MEDS ORDERED: HYDROcodone/Acetaminophen 10/325 mg Tablet PO PRN (18:34)
[2017-08-10] MEDS: Sodium Chloride 0.9% 1,000 ML IV SCH ×3 (04:22→22:40)
[2017-08-10] MEDS ORDERED: traMADol HCl 50 MG TAB PO PRN (08:34)
[2017-08-10] MEDS: HYDROcodone/Acetaminophen 10/325 mg Tablet PO PRN ×2 (11:17→16:52)
[2017-08-10] MEDS: cefTRIAXone\\ROCEPHIN 2 GM in Sodium Chloride 0.9% 100 ML IVPB SCH (11:19)
[2017-08-10] MEDS ORDERED: cefTRIAXone\\ROCEPHIN 2 GM VIAL IVPB SCH (12:00)
[2017-08-10] MEDS: traMADol HCl 50 MG TAB PO PRN (18:33)
[2017-08-11] MEDS: HYDROcodone/Acetaminophen 10/325 mg Tablet PO PRN ×4 (00:11→19:39)
[2017-08-11] MEDS: Sodium Chloride 0.9% 1,000 ML IV SCH ×3 (08:24→19:40)
[2017-08-11] MEDS: cefTRIAXone\\ROCEPHIN 2 GM in Sodium Chloride 0.9% 100 ML IVPB SCH (11:50)
[2017-08-11] MEDS: traMADol HCl 50 MG TAB PO PRN (17:50)
[2017-08-12] MEDS: HYDROcodone/Acetaminophen 10/325 mg Tablet PO PRN ×3 (00:20→21:10)
[2017-08-12] MEDS: traMADol HCl 50 MG TAB PO PRN (03:26)
--- NOTE | 2017-08-12 10:37 | OP ---
DATE OF SURGERY: 08/09/2017 PREOPERATIVE DIAGNOSIS: Infected left tibial nonunion. POSTOPERATIVE DIAGNOSIS: Infected left tibial nonunion. SURGICAL PROCEDURES: 1. Irrigation and debridement of left tibial shaft infected nonunion. 2. Removal of left tibial intramedullary nailing including broken distal cross lock screw. 3. Placement of polyethylene methacrylate antibiotic impregnated cement intramedullary nail. ANESTHESIA: General. SURGEON: Jesus Ambriz M.D. PEDICURIST: Edwin Seay PA-C. TOURNIQUET TIME: 76 minutes at 300 mmHg. IMPLANTS: A Maay bhavik sized J coated, tobramycin and vancomycin impregnated polymethyl methacrylate. SPECIMEN: Explanted tibial nail discarded. COMPLICATIONS: None. DRAINS: None. INDICATIONS: The patient is a 22-year-old lady status post open tibial shaft fracture treated with i rrigation, debridement, and intramedullary nail stabilization. The patient has gone on to an infecte d tibial fracture site which is now status post irrigation and debridement. Unfortunately, she is no w having increasing pain and increasing swelling at the fracture site felt to be possibly consistent with continued or worsening infection despite being on IV antibiotics. As such, the patient taken chencho mao to the operating room for repeat irrigation and debridement, and anticipated removal of hardware a nd placement of an antibiotic coated implant. DESCRIPTION OF PROCEDURE: The patient was brought to the operating room and a timeout performed foll owed by induction of general anesthesia. The patient was then placed supine on the OR table. Next, under C-arm guidance, a small posterior medial incision was made to try and remove the posterior flavia ined cross lock screw, which had broken. The anterior portion had been removed at her prior incision and drainage procedure. The limb was elevated and then tourniquet inflated to 300 mmHg. A posterio r medial incision was then performed. The dissection was carried down along the medial side of the A chilles tendon. Blunt dissection was used to go through the muscle belly of the flexor hallucis long us. At this point, the screw could be palpated as it was prominent through the posterior cortex of t he tibia. Next, using the broken screw removal set, the small fragment of posterior screw was remove d without difficulty. This was then followed by opening of the anteromedial and surgical incision si te was used for her prior incision, irrigation and debridement procedure. This was opened and she wa s found to have significant fibrinous exudate around the fracture with some evidence of callous forma tion proximal to the fracture, but nothing bridging the fracture site itself. There was still no anastacia dence of healing across the tibial shaft. This area was then irrigated with 5 liters of normal salin e using Pulsavac. At completion of this, a midline anterior knee incision was made following the cheri or scar. After skin was sharply incised, dissection was carried down bluntly to the underlying perdomo lar tendon. A patellar tendon splitting approach to the proximal tibia was then utilized. The nail was identified and some of the scar tissue from the original surgery was removed from the top of the nail and then the extraction device inserted onto the nail and the nail was removed after the proxima l cross lock screw was removed through a fourth small stab wound. Once out, an antibiotic impregnate d methyl methacrylate nail was prepared. This was done with a 36 Slovak chest tube that was coated w ith mineral oil initially and then two batches of Disha Simplex antibiotic with tobramycin was mixe d with the addition of 2 grams of vancomycin. This was then injected into the chest tube and this wa s followed by passage of a maya pin into the antibiotics. The antibiotics then fully cured with the maya bhavik fully coated except for the proximal hook. This thrush bhavik had been cut to an appropriate l ength based off of the tibial nail that had been placed previously. Next, the canal of the tibia was reamed to a size 11. This was 1 mm larger than reamed initially removing some of the exudate from t he canal and then the methylmethacrylate coated maya bhavik was passed down the canal up the tibia. Thi s resulted in reasonable provisional stabilization of the fracture and filling of the intramedullary canal with this antibiotic mixed methyl methacrylate. Next, the proximal wound was closed in layers with 0 Vicryl deep, followed by 2-0 Vicryl and then adrienne for the skin. The proximal cross lock sc rew site was closed with adrienne. The two distal wounds were closed with nylon in simple fashion. A Xeroform gauze, Webril, and fiberglass splint was then applied to the leg. The tourniquet was let d own at completion of dressing, and then patient was transferred to recovery room in stable condition. There were no complications. Patient tolerated the procedure well.
[2017-08-12] MEDS: cefTRIAXone\\ROCEPHIN 2 GM in Sodium Chloride 0.9% 100 ML IVPB SCH (11:13)
[2017-08-12] MEDS: Sodium Chloride 0.9% 1,000 ML IV SCH (14:02)
[2017-08-13] MEDS: Ketorolac Tromethamine 30 MG/ML VIAL IVP PRN ×2 (05:05→23:27)
[2017-08-13] MEDS: HYDROcodone/Acetaminophen 10/325 mg Tablet PO PRN ×2 (05:05→20:26)
[2017-08-13] MEDS: Sodium Chloride 0.9% 1,000 ML IV SCH ×4 (05:12→23:28)
[2017-08-13] MEDS: cefTRIAXone\\ROCEPHIN 2 GM in Sodium Chloride 0.9% 100 ML IVPB SCH (11:27)
[2017-08-13] MEDS: Vancomycin HCl 1.25 GM in Sodium Chloride 0.9% 250 ML 250 ML IVPB SCH (17:16)
[2017-08-13] MEDS: Docusate 100 MG CAP PO PRN (20:26)
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
[2017-08-14] MEDS: Vancomycin HCl 1.25 GM in Sodium Chloride 0.9% 250 ML 250 ML IVPB SCH ×4 (01:34→23:59)
[2017-08-14] MEDS: cefTRIAXone\\ROCEPHIN 2 GM in Sodium Chloride 0.9% 100 ML IVPB SCH (12:29)
[2017-08-14] MEDS: Docusate 100 MG CAP PO PRN ×2 (12:30→23:51)
[2017-08-14] MEDS: Sodium Chloride 0.9% 1,000 ML IV SCH ×2 (15:09→23:50)
[2017-08-14 16:25] LABS: Vancomycin, Trough 15.9 ug/mL
[2017-08-14] MEDS: Ketorolac Tromethamine 30 MG/ML VIAL IVP PRN (17:01)
[2017-08-15] MEDS: HYDROcodone/Acetaminophen 10/325 mg Tablet PO PRN (08:08)
[2017-08-15] MEDS: Vancomycin HCl 1.25 GM in Sodium Chloride 0.9% 250 ML 250 ML IVPB SCH ×2 (09:17→18:15)
--- NOTE | 2017-08-15 10:32 | PRG ---
DATE OF SERVICE: 08/15/2017 SUBJECTIVE: Slept well. Minor pain in the right lower extremity. No dyspnea or chest pain, no abdo rio pain, voiding without difficulty. OBJECTIVE: VITAL SIGNS: Normal. She is afebrile. LUNGS: Clear. HEART: S1, S2, regular rate. ABDOMEN: Soft. Right leg dressed with splint, which was not removed. Cognitive function intact. LABORATORY DATA: Last labs from 08/08, have not been repeated. ASSESSMENT AND DISCUSSION: Open fracture, right tibial location of fixation, methicillin-resistant S taphylococcus aureus infection. Now with worsening pain and had removal of previous nail and replace ment with antibiotic impregnated nail. All the cultures thus far negative except for methicillin-res istant Staph epidermides, which could reflect contamination of the sample or true pathogenic role. P atient to continue on vancomycin plus Rocephin and new on date of therapy, 09/23 with weekly labs. M ay need to be transitioned to daptomycin, if she will receive the treatment through the oncology unit since it would allow once daily administration.
[2017-08-15] MEDS: cefTRIAXone\\ROCEPHIN 2 GM in Sodium Chloride 0.9% 100 ML IVPB SCH (12:11)
[2017-08-15] MEDS: Sodium Chloride 0.9% 1,000 ML IV SCH (12:31)
[2017-08-15] MEDS ORDERED: Vancomycin HCl 1.25 GM, Admixture Fee 1 EACH in Sodium Chloride 0.9% 250 ML 250 ML IVPB SCH (13:15)
[2017-08-15] MEDS ORDERED: Vancomycin HCl 1.5 GM, Admixture Fee 1 EACH in Sodium Chloride 0.9% 250 ML 300 ML IVPB SCH (13:15)
[2017-08-15] MEDS: traMADol HCl 50 MG TAB PO PRN (15:37)
[2017-08-15 15:48] VITALS: BP 121/84; TEMP 98
== END 2017-08-15 18:46 | disposition home or self-care (01) | DRG 493 ==
LOC: SURG A 18:25
PROVIDERS: ADMIT Orthopaedic Surgery; ATTEND Orthopaedic Surgery
PROC: 0QHH06Z Insertion of Intramedullary Internal Fixation Device into Left Tibia, Open Approach (ICD-10-PCS; principal; 2017-08-09)
PROC: 0QPH04Z Removal of Internal Fixation Device from Left Tibia, Open Approach (ICD-10-PCS; 2017-08-09)
DX: T84.623A Infection and inflammatory reaction due to internal fixation device of left tibia, initial encounter (principal); S82.302K Unspecified fracture of lower end of left tibia, subsequent encounter for closed fracture with nonunion; D68.2 Hereditary deficiency of other clotting factors; B95.62 Methicillin resistant Staphylococcus aureus infection as the cause of diseases classified elsewhere; T84.117A Breakdown (mechanical) of internal fixation device of bone of left lower leg, initial encounter; F17.210 Nicotine dependence, cigarettes, uncomplicated
CPT/HCPCS: 36415; 76001; 80048; 80202; 85025; 87070; 87077; 87186; 87205; C1713; C1769; J0131; J0696; J1100; J1200; J1885; J2001; J2250; J2270; J2405; J2704; J2765; J3010; J3370; J7050

== ENCOUNTER 2017-08-18 14:05 | Outpatient (CLI) | payer OTHER | END 2017-08-18 14:06 | disposition home or self-care (01) | LOC: WCC 14:05 | PROVIDERS: ATTEND Family Medicine | DX: T81.89XD Other complications of procedures, not elsewhere classified, subsequent encounter (principal) | CPT/HCPCS: 97605 ==

== ENCOUNTER 2017-08-22 15:32 | Outpatient (CLI) | payer OTHER ==
[~2017-08-22 15:32] MED LIST: Sodium Chloride 0.9% 15 ML NEB ONE
== END 2017-08-22 15:33 | disposition home or self-care (01) ==
LOC: WCC 15:32
PROVIDERS: ATTEND Family Medicine
DX: T81.89XD Other complications of procedures, not elsewhere classified, subsequent encounter (principal)
CPT/HCPCS: 97605; A4218

== ENCOUNTER 2017-08-25 10:13 | Outpatient (CLI) | payer OTHER, SELFPAY ==
--- NOTE | 2017-08-25 12:16 | PRG ---
DATE OF SERVICE: 08/25/2017 HISTORY: Ms. Aniket Sherman is a very pleasant 22-year-old who presents to the [facility] for dandre luation of 2 wounds of the right lower leg subsequent to irrigation and debridement of a right lower extremity wound with an open tibia fracture on 07/18/[address] Garret Schwartz. An incisiona l VAC was applied at the time of surgery on 07/18/2017. The patient stated that after the incisional VAC was discontinued 2 wounds of the right lower leg were dressed with Promogran, Silvercel, ABDs, K erlix, and an Jhoan bandage. The patient was referred to the Wound Center for assistance with dressing changes for her right lower extremity wounds. The patient has no other complaints today. She denie s any fever or chills. Since the patient's visit on 07/28/2017 Ms. Sherman underwent surgery by Dr. Lalito villafana for infected left tibial nonunion. Negative pressure therapy was initiated subsequent to jaron breaux. Today the patient states that the wound VAC; however, has been discontinued by Dr. Schwartz. PHYSICAL EXAMINATION: VITAL SIGNS: Temperature 98.1, pulse 94, respirations 16, blood pressure 113/73. EXTREMITIES: Only 1 wound of the right lower leg is present which measures approximately 1.0 x 0.3 c m. No purulent drainage or serous drainage is associated with the wound. No erythema of the skin garrett rrounding the wound is present. No maceration of the skin of the periwound is noted. A dorsalis ped is pulse is easily palpable on the right. Edema of the right foot and lower leg is present on exam t ant. ASSESSMENT AND PLAN: 1. Right lower leg wound as described above. Xeroform gauze, Webril, and 3m Coban 2-layer compressi on system will be applied to the ulceration today. The patient has been instructed to discontinue th e compression wrap applied in clinic today in 1 week. The patient understands and is in agreement wi th the preceding treatment plan. The wound of the right lower leg has almost healed completely and Allison Sherman will be discharged from clinic today with followup on a p.r.n. basis. The patient is recei ving IV antibiotics as per Dr. Wilfred Oconnor of Infectious Diseases. 2. History of Factor V congenital abnormality.
== END 2017-08-25 10:14 | disposition home or self-care (01) ==
LOC: WCC 10:13
PROVIDERS: ATTEND Family Medicine
DX: T81.89XD Other complications of procedures, not elsewhere classified, subsequent encounter (principal)
CPT/HCPCS: 29581

== ENCOUNTER 2017-09-03 13:16 | Emergency (ER) | payer SELFPAY ==
[2017-09-03] MEDS ORDERED: Ondansetron ODT 4 MG TAB ONE (13:39)
[2017-09-03 14:19] LABS: Vancomycin, Trough 17.1 ug/mL
[2017-09-03 14:58] LABS: #Eosinphils 0.2 thou/uL (0.0-0.7); #Lymphocytes 0.7 thou/uL (1.20-3.40); #Monocytes 0.3 thou/uL (0.11-0.59); #Neutrophils 1.6 thou/uL (1.40-6.50); %Basophils 0.6 % (0.0-1.0); %Eosinophils 6.9 % (0.0-10.0); %Lymphocytes 24.5 % (21.0-51.0); %Monocytes 11.1 % (0.0-10.0); Hemoglobin 10.5 g/dL (12.0-16.0); Mean Corpuscular HGB CONC 33.6 g/dL (32.0-36.0); Mean Corpuscular Hemoglobin 27.6 pg (27.0-31.0); Mean Corpuscular Volume 82.2 fl (81.0-99.0); Mean Platelet Volume 8.7 fL (7.4-10.4); Platelet Count 252 thou/uL (130-400); RBC Distribution Width 14.7 % (11.5-14.5); Red Blood Cell (RBC) Count 3.81 mill/uL (4.20-5.40); White Blood Cell (WBC) Count 2.9 thou/uL (4.8-10.8)
[2017-09-03 15:18] LABS: ALT (SGPT) 11 U/L (8-55); AST (SGOT) 13 U/L (5-34); Albumin 4.1 g/dL (3.5-5.0); Alkaline Phosphatase 129 U/L (40-150); Anion Gap 12 mmol/L (10-20); BUN (Urea Nitrogen) 4 mg/dL (7.0-18.7); Bilirubin, Total 0.5 mg/dL (0.2-1.2); Calc. Creatinine Clearance 0 mL/min (70-130); Carbon Dioxide 24 mmol/L (22-29); Chloride 106 mmol/L (98-107); Estimated GFR-MDRD Greater than 90; Globulin 2.6 g/dL (2.4-3.5); Glucose 105 mg/dL (70-105); Potassium 3.5 mmol/L (3.5-5.1); Protein, Total 6.7 g/dL (6.0-8.3); Sodium 138 mmol/L (136-145)
== END 2017-09-03 15:36 | disposition home or self-care (01) ==
LOC: ERS 13:16
DX: R11.2 Nausea with vomiting, unspecified (principal); F41.9 Anxiety disorder, unspecified; F32.9 Major depressive disorder, single episode, unspecified; F17.210 Nicotine dependence, cigarettes, uncomplicated
CPT/HCPCS: 36415; 80053; 80202; 85025; 99284; Q0162

== ENCOUNTER 2017-12-06 00:26 | Emergency (ER) | payer OTHER, SELFPAY ==
--- NOTE | 2017-12-06 09:18 | RAD ---
TWO VIEWS OF THE RIGHT FORELEG: INDICATION: Right leg pain. COMPARISON: Prior exam dated 08/09/17 and 07/15/17. FINDINGS: There has been progressive healing without evidence of displacement and involving the distal tibial s haft fracture. There is exuberant bone callus surrounding the fracture site. There is an intramedul frances bhavik still present within the midline of the medullary cavity of the tibia. Skin adrienne overlie the medial soft tissues. There is soft tissue swelling surrounding the foreleg. IMPRESSION: 1. Some interval healing of the distal tibial shaft fracture without evidence of displacement. 2. Intramedullary bhavik is unchanged. POS: KIYA
== END 2017-12-06 02:35 | disposition home or self-care (01) ==
LOC: ERS 00:26
DX: M79.661 Pain in right lower leg (principal); F41.9 Anxiety disorder, unspecified; F32.9 Major depressive disorder, single episode, unspecified; F17.210 Nicotine dependence, cigarettes, uncomplicated; Z71.6 Tobacco abuse counseling
CPT/HCPCS: 99406

== ENCOUNTER 2017-12-23 14:00 | Outpatient (CLI) | payer MEDICAID ==
--- NOTE | 2017-12-23 17:13 | CT ---
CT RIGHT LOWER EXTREMITY WITH AND WITHOUT CONTRAST 12/23/17 HISTORY: Open displaced fracture. Osteomyelitis. Pain. FINDINGS: There is intramedullary nail traversing the near entire craniocaudal extent of the tibia which estrada ses a nonhealed fracture with persistent obliquely oriented lucency surrounded by incompletely healed callus formation. There are adjacent radiopaque densities of the soft tissues, medially, some of whi ch are calcific and there are also adjacent metallic adrienne. The soft tissues of this region are ind urated with increased ill-defined density as well as irregular contour of the overlying skin surface. Soft tissue edema is present. There is no well formed drainable fluid collection. There are scattere d areas of punctate intramedullary lucency of the imaged distal femur and within the tibia and fibula which may relate to areas of osseous demineralization. Focal cortical irregularity with lucency does involve the medial aspect of the fracture site of the distal tibial diaphysis with an intervening fr acture fragment. Given the osseous defect and adjacent sclerosis/cortical irregularity and discontinu ity, the possibility of osteomyelitis is not excluded. Note is made that there is streak artifact fro m the indwelling hardware which does limit sensitivity of the evaluation. IMPRESSION: Persistent fracture lucency of the distal tibial diaphysis with traversing intramedullary nail. At the site of prior fracture deformity, there is prominent, although incompletely healed callus form ation as well as a focal defect located medially with surrounding cortical irregularity and overlying soft tissue abnormality/edema and skin surface irregularity. The possibility of osteomyelitis is not excluded. If there is need for further imaging evaluation to provide a more sensitive assessment, th is could be performed with the use of combined nuclear medicine labeled white blood cell scan and cecil hnetium 99m sulfur colloid marrow scan. POS: KIYA
== END 2017-12-23 14:01 | disposition home or self-care (01) ==
LOC: CT 14:00
PROVIDERS: ATTEND Orthopaedic Surgery
DX: S82.231 Displaced oblique fracture of shaft of right tibia (principal); M86.9 Osteomyelitis, unspecified; Z32.00 Encounter for pregnancy test, result unknown
CPT/HCPCS: 36415; 84702

== ENCOUNTER 2018-01-06 07:00 | Inpatient (IN) | payer MEDICAID ==
[2018-01-05 09:03] VITALS: BMI 37.4
[2018-01-06] MEDS ORDERED: CEFAZOLIN/Water 2 GM/20 ML SYRINGE ONE (07:50)
[2018-01-06] MEDS ORDERED: Fentanyl 100 MCG/2 ML VIAL ONE ×3 (08:58→11:27)
[2018-01-06] MEDS ORDERED: Bupivacaine HCl 0.5%/Epinephrine 1:200,000/PF 30 ml Vial ONE (10:10)
[2018-01-06] MEDS ORDERED: Acetaminophen 325 MG TAB PO PRN (10:23)
[2018-01-06] MEDS ORDERED: Fentanyl 100 MCG/2 ML VIAL SLOW IVP PRN (10:23)
[2018-01-06] MEDS ORDERED: Ondansetron HCl/PF 4 MG/2 ML Vial IV PRN (10:23)
[2018-01-06] MEDS ORDERED: traMADol HCl 50 MG TAB PO PRN (10:23)
[2018-01-06] MEDS ORDERED: Communication Order-Pharmacy FS SCH (10:30)
[2018-01-06] MEDS ORDERED: Ondansetron HCl/PF 4 MG/2 ML Vial IVP PRN (11:13)
[2018-01-06] MEDS ORDERED: Promethazine HCl 25 MG/ML VIAL SLOW IVP PRN (11:13)
[2018-01-06] MEDS ORDERED: Promethazine HCl 25 MG/ML VIAL IM PRN (11:13)
--- NOTE | 2018-01-06 11:29 | OP ---
DATE OF OPERATION: 01/06/2018 OPERATION: 1. Right tibia hardware removal. 2. Right tibia intramedullary nail. PREOPERATIVE DIAGNOSIS: Right tibia fracture nonunion. POSTOPERATIVE DIAGNOSIS: Right tibia fracture, nonunion. COMPLICATIONS: None. ESTIMATED BLOOD LOSS: Minimal. SURGEON: Garret Schwartz M.D. ANESTHESIA: Synthes 315 mm x 10 mm tibial nail with cross lock screws. INDICATIONS: Ms. Sherman is a 23-year-old female who has fractured her tibia. She had a severe open injury. This was complicated by infection, which required wound debridement and skin grafting. Her nail previously was removed and a cement nail with a Martin bhavik was placed. 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 She was indicated for Martin bhavik removal and cement removal followed b y intramedullary nail fixation to provide stability of the fracture as well as reaming for stimulatio n of healing. Risks have been reviewed. Risks do include recurrence of infection, hardware failure, further nonunion and others. DESCRIPTION OF PROCEDURE: Ms. Sherman was identified in the preoperative holding area. Her correct e xtremity was marked. She was carried to the operating room. She was positioned supine. General ane sthesia was induced. A multidisciplinary timeout was performed. The right lower extremity was prepp ed and draped in sterile fashion. We began the procedure with an anterior incision over the patient's knee. We dissected down through the subcutaneous tissues to the patellar tendon. The tendon was split. At this point, we identified the Martin bhavik anteriorly at the tibial plateau. We cleared the edges of the bhavik with an osteotome. We then removed this using a bone hook and pliers. The bhavik as well as all cement was removed from th e tibial canal. At this point, we inserted a guidewire. We then overdrilled and reamed the guidewir e. We reamed from an 8.5 up to an 11.5 size. We obtained good cortical chatter. We took x-rays con firming placement. At this point, we went ahead and placed our Synthes tibial nail. This was insert ed from proximal to distal. We placed a distal cross lock screw and a proximal cross lock screw in t he dynamic position. We took final images. We thoroughly irrigated with copious lavage. We then cl osed with 0 Vicryl suture, 2-0 Vicryl suture and adrienne for the skin. A sterile dressing was applie d. The patient was taken to the recovery room in good condition without complication.
--- NOTE | 2018-01-06 11:31 | RAD ---
SIX FLUOROSCOPIC SPOT IMAGES OF THE RIGHT FORELEG: INDICATION: Intramedullary rodding of the right foreleg. FINDINGS: Submitted images demonstrate placement of a large caliber intramedullary bhavik following removal of the previously seen intramedullary antibiotic spacer on the comparison radiograph dated 12/06/17. The ro d does bridge the hypertrophic nonunion involving the mid to distal shaft of the right tibia. The in strumentation projects in the expected position. There are proximal distal interlocked screws in janene ce. The total fluoroscopic time was 31.5 seconds. The total exposure was 0.82 mGy. IMPRESSION: Intraoperative C-arm evaluation for intramedullary bhavik placement removal. Previously seen intramedul frances antibiotic spacer. POS: KIYA
[2018-01-06] MEDS ORDERED: diphenhydrAMINE 25 MG CAP PO PRN (13:19)
[2018-01-06] MEDS: Morphine 4 MG/ML VIAL SLOW IVP PRN ×2 (13:39→18:17)
[2018-01-06] MEDS: CEFAZOLIN/Water 2 GM/20 ML SYRINGE SLOW IVP SCH ×2 (16:30→22:35)
[2018-01-07] MEDS: HYDROcodone/Acetaminophen 10/325 mg Tablet PO PRN ×3 (03:19→19:06)
[2018-01-07 05:53] LABS: #Lymphocytes 1.6 thou/uL (1.20-3.40); #Monocytes 0.8 thou/uL (0.11-0.59); #Neutrophils 10.6 thou/uL (1.40-6.50); %Basophils 0.1 % (0.0-1.0); %Eosinophils 0.1 % (0.0-10.0); %Monocytes 5.8 % (0.0-10.0); %Neutrophils 81.9 % (42.0-75.0); Mean Corpuscular HGB CONC 33.9 g/dL (32.0-36.0); Mean Corpuscular Hemoglobin 28.1 pg (27.0-31.0); Mean Corpuscular Volume 83.1 fL (78.0-98.0); Platelet Count 204 thou/uL (130-400); RBC Distribution Width 14.6 % (11.5-14.5); White Blood Cell (WBC) Count 12.9 thou/uL (4.8-10.8)
[2018-01-07] MEDS: Enoxaparin Sodium 40 MG/0.4 ML SYRINGE SC SCH (08:35)
[2018-01-07] MEDS: CEFAZOLIN/Water 2 GM/20 ML SYRINGE SLOW IVP SCH ×2 (08:35→16:12)
[2018-01-08] MEDS: CEFAZOLIN/Water 2 GM/20 ML SYRINGE SLOW IVP SCH ×3 (00:03→15:42)
[2018-01-08] MEDS: HYDROcodone/Acetaminophen 10/325 mg Tablet PO PRN ×3 (00:03→14:18)
[2018-01-08] MEDS: Enoxaparin Sodium 40 MG/0.4 ML SYRINGE SC SCH (08:34)
[2018-01-08 15:44] VITALS: BP 119/78; TEMP 98.3
== END 2018-01-08 16:20 | disposition home or self-care (01) | DRG 494 ==
LOC: SURG A 07:00 → SURG B 11:10
PROVIDERS: ADMIT Orthopaedic Surgery; ATTEND Orthopaedic Surgery
PROC: 0QHG06Z Insertion of Intramedullary Internal Fixation Device into Right Tibia, Open Approach (ICD-10-PCS; principal; 2018-01-06)
PROC: 0QPG04Z Removal of Internal Fixation Device from Right Tibia, Open Approach (ICD-10-PCS; 2018-01-06)
DX: S82.201A Unspecified fracture of shaft of right tibia, initial encounter for closed fracture (principal); X58.XXXA Exposure to other specified factors, initial encounter; Y93.9 Activity, unspecified; Y92.9 Unspecified place or not applicable; Y99.9 Unspecified external cause status
CPT/HCPCS: 36415; 76001; 85025; 96374; C1713; C1769; G8978-GP-CI; G8979-GP-CI; G8980-GP-CI; J0670; J1650; J2270; J2405; J3010

== ENCOUNTER 2018-12-20 15:05 | Outpatient (CLI) | payer OTHER ==
--- NOTE | 2018-12-20 15:43 | ULT ---
ULTRASOUND PELVIS DOPPLER DUPLEX: Date: 12/20/18 HISTORY: 23-year-old female with ICD-10: O09.91, high risk in first trimester. TECHNIQUE: Transabdominal transducer used to evaluate intrapelvic contents with Stock scale, color flow, and spec tral analysis. FINDINGS: Uterus: 8.5 x 6.5 x 7 cm. Intrauterine gestational sac containing yolk sac and embryonic pole. [place]-rump length: 1.1 cm, 7w 1d. Embryonic heart rate: 143 bpm. No subchorionic hemorrhage. No free fluid in the cul-de-sac. Right ovary: 2.5 x 2 x 2.5 cm, with small follicles. Left ovary: 2 x 2.5 x 1.5 cm, with small follicles. Blood flow demonstrated to both ovaries by Doppler. No ovarian cyst greater than 1 cm visualized. Free fluid in the cul-de-sac: None. IMPRESSION: Live first trimester intrauterine gestation estimated to be 7 weeks 1 day gestational age. No evide nce of complications. POS: [facility]
== END 2018-12-20 15:06 | disposition home or self-care (01) ==
LOC: SCSULT 15:05
PROVIDERS: ATTEND Nurse Practitioner
DX: O09.91 Supervision of high risk pregnancy, unspecified, first trimester (principal); Z3A.01 Less than 8 weeks gestation of pregnancy
CPT/HCPCS: 76856; 93976

== ENCOUNTER 2019-07-09 11:51 | Day surgery (SDC) | payer OTHER ==
[2019-07-09 14:26] VITALS: BMI 36.2
[2019-07-09 14:32] VITALS: BP 112/73; TEMP 98.2
[2019-07-09] MEDS ORDERED: hydrALAZINE 20 MG/ML VIAL SLOW IVP PRN (15:04)
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
[2019-07-10] MEDS ORDERED: FLU VACC QS2019-20(6MOS UP)/PF 60 MCG/0.5 ML SYRINGE IM ONE (09:00)
== END 2019-07-09 15:11 | disposition home health service (06) ==
LOC: ERS 11:51 → L&D/OP 13:30 → ERS 13:48 → L&D/OP 13:53
PROVIDERS: ATTEND Obstetrics & Gynecology
DX: O9A.213 Injury, poisoning and certain other consequences of external causes complicating pregnancy, third trimester (principal); T21.12XA Burn of first degree of abdominal wall, initial encounter; O99.343 Other mental disorders complicating pregnancy, third trimester; F41.9 Anxiety disorder, unspecified; O99.513 Diseases of the respiratory system complicating pregnancy, third trimester; J45.909 Unspecified asthma, uncomplicated; Z3A.36 36 weeks gestation of pregnancy; Z79.899 Other long term (current) drug therapy
CPT/HCPCS: 99282

== ENCOUNTER 2019-07-29 19:01 | Inpatient (IN) | payer OTHER ==
[2019-07-29 19:39] VITALS: BMI 36.8
[2019-07-29] MEDS ORDERED: Butorphanol Tartrate 1 MG/ML VIAL SLOW IVP PRN (20:00)
[2019-07-29] MEDS ORDERED: Methylergonovine 0.2 MG/ML VIAL IM PRN (20:00)
[2019-07-29] MEDS ORDERED: Diphenoxylate HCl/Atropine Tablet PO PRN (20:00)
[2019-07-29] MEDS ORDERED: Misoprostol 200 MCG TAB PR PRN (20:00)
[2019-07-29] MEDS ORDERED: NS / Oxytocin 40 units/1000ml 1,000 ML IV PRN (20:00)
[2019-07-29] MEDS ORDERED: Ibuprofen 800 MG TAB PO PRN (20:00)
[2019-07-29] MEDS ORDERED: Lidocaine 1% (PF) 30 ML VIAL SC PRN (20:00)
[2019-07-29] MEDS ORDERED: HYDROcodone/Acetaminophen 5/325 mg Tablet PO PRN ×2 (20:00)
[2019-07-29] MEDS ORDERED: Promethazine HCl 25 MG/ML VIAL IM PRN (20:00)
[2019-07-29] MEDS ORDERED: Ondansetron PF 4 MG/2 ML Vial IVP PRN (20:00)
[2019-07-29] MEDS ORDERED: NS w/ Oxytocin 10 units 500 ML IV SCH (20:00)
[2019-07-29] MEDS ORDERED: Carboprost 250 MCG/ML AMP IM PRN (20:00)
[2019-07-29] MEDS ORDERED: hydrALAZINE 20 MG/ML VIAL SLOW IVP PRN (20:00)
--- NOTE | 2019-07-29 20:10 | PDOC.LDHP ---
Labor and Delivery H&P HPI: 24 y/o at 39 and 3/7 weeks for term induction of labor. Current gestational age (weeks): 39 Grav: 2 Para: 1 Current complications: none Abnormal US findings: No Current medications: pre-eric vitamins Previous surgical history: other (Multiple Leg surgery with skin grafting.) Allergies/Adverse Reactions: Allergies Allergy/AdvReac Type Severity Reaction Status Date / Time No Known Drug Allergies Allergy Verified 07/09/19 14:20 Social history: tobacco use, none - Physical Exam Vital signs reviewed and normal: yes General: NAD Heart: RRR Lungs: CTAB Abdomen: gravid Extremeties: no edema FHT: category 1 - Assessment L&D Assessment: elective induction at term - Plan Plan: admit to L&D, cervical ripening
[2019-07-29] MEDS: Lactated Ringer's 1,000 ML IV SCH ×2 (20:19→23:46)
[2019-07-29] MEDS: Misoprostol 100 MCG TAB VAG SCH ×2 (20:19→23:46)
[2019-07-29 20:33] LABS: Hemoglobin 10.2 g/dL (12.0-16.0); Mean Corpuscular HGB CONC 35.7 g/dL (32.0-36.0); Mean Corpuscular Hemoglobin 29.2 pg (27.0-31.0); Mean Corpuscular Volume 81.7 fL (78.0-98.0); Mean Platelet Volume 10.2 fL (7.4-10.4); Platelet Count 156 thou/uL (130-400); RBC Distribution Width 12.9 % (11.5-14.5); Red Blood Cell (RBC) Count 3.52 mill/uL (4.20-5.40); White Blood Cell (WBC) Count 9.6 thou/uL (4.8-10.8)
[2019-07-29 21:14] LABS: Syphilis Antibody Nonreactive (Nonreactive); Syphilis Antibody Index 0.05 S/CO (<1.00 Non-Reactive)
[2019-07-29 22:47] LABS: HBSAg Index 0.12 S/CO (0-0.99); Hep B Surf Ag Non-Reactive S/CO (NonReactive)
[2019-07-30] MEDS: Misoprostol 100 MCG TAB VAG SCH (04:34)
[2019-07-30] MEDS: Lactated Ringer's 1,000 ML IV SCH ×2 (06:32→16:00)
[2019-07-30] MEDS ORDERED: FLU VACC QS2019-20(6MOS UP)/PF 60 MCG/0.5 ML SYRINGE IM ONE (09:00)
[2019-07-30] MEDS: NS w/ Oxytocin 10 units 500 ML IV SCH (19:16)
[2019-07-30] MEDS ORDERED: HYDROcodone/Acetaminophen 5/325 mg Tablet PO PRN ×2 (20:06)
[2019-07-30] MEDS ORDERED: diphenhydrAMINE 25 MG CAP PO PRN (20:06)
[2019-07-30] MEDS ORDERED: Bisacodyl 10 MG SUPP PR PRN (20:06)
[2019-07-30] MEDS ORDERED: Misoprostol 200 MCG TAB VAG PRN (20:06)
[2019-07-30] MEDS ORDERED: Benzocaine-Menthol 82.5 ML CAN TOP PRN (20:06)
[2019-07-30] MEDS ORDERED: hydrALAZINE 20 MG/ML VIAL SLOW IVP PRN (20:06)
[2019-07-30] MEDS ORDERED: Preparation H Ointment 28 GM TUBE PR PRN (20:06)
[2019-07-30] MEDS ORDERED: Lanolin Ointment 7 GM TUBE TOP PRN (20:06)
[2019-07-30] MEDS ORDERED: Milk Of Magnesia 30 ML UDCUP PO PRN (20:06)
[2019-07-30] MEDS ORDERED: Zolpidem Tartrate 5 MG TAB PO PRN (20:06)
[2019-07-30] MEDS ORDERED: Methylergonovine 0.2 MG/ML VIAL IM PRN (20:06)
[2019-07-30] MEDS ORDERED: Promethazine HCl 25 MG/ML VIAL IM PRN (20:06)
[2019-07-30] MEDS ORDERED: Ondansetron PF 4 MG/2 ML Vial IVP PRN (20:06)
[2019-07-30] MEDS ORDERED: NS / Oxytocin 40 units/1000ml 1,000 ML IV SCH (20:06)
[2019-07-30] MEDS: Docusate Calcium (SURFAK) 240 MG CAP PO SCH (20:36)
[2019-07-31] MEDS: Ibuprofen 800 MG TAB PO SCH ×4 (00:27→21:29)
[2019-07-31] MEDS: Misoprostol 100 MCG TAB VAG SCH (00:28)
[2019-07-31] MEDS: NS w/ Oxytocin 10 units 500 ML IV SCH (00:29)
[2019-07-31] MEDS ORDERED: Witch Hazel-Glycerin 1 EACH JAR TOP PRN (00:43)
[2019-07-31 06:00] LABS: Hemoglobin 9.1 g/dL (12.0-16.0); Mean Corpuscular HGB CONC 32.6 g/dL (32.0-36.0); Mean Corpuscular Hemoglobin 27.5 pg (27.0-31.0); Mean Corpuscular Volume 84.4 fL (78.0-98.0); Mean Platelet Volume 10.4 fL (7.4-10.4); Platelet Count 145 thou/uL (130-400); RBC Distribution Width 12.9 % (11.5-14.5); Red Blood Cell (RBC) Count 3.31 mill/uL (4.20-5.40); White Blood Cell (WBC) Count 10.3 thou/uL (4.8-10.8)
[2019-07-31] MEDS ORDERED: Adacel (T-DAP) 0.5 ML SYRINGE IM ONE (09:00)
[2019-07-31] MEDS ORDERED: Measles/Mumps/Rubella 10 MCG/0.5 ML VIAL SC ONE (09:00)
[2019-07-31] MEDS ORDERED: Varicella virus, LIVE 0.5 ML VIAL SC ONE (09:00)
[2019-07-31] MEDS: Prenatal Vitamin 1 TAB PO SCH (09:13)
[2019-07-31] MEDS: Ferrous Sulfate 325 MG TAB PO SCH ×2 (09:13→17:23)
[2019-07-31] MEDS: Docusate Calcium (SURFAK) 240 MG CAP PO SCH ×2 (09:14→21:29)
--- NOTE | 2019-07-31 18:58 | PDOC.PP ---
Post Progress Note Post Day #: 1 PO intake tolerated: yes Flatus: yes Ambulation: yes Vital Signs (12 hours) Temp Pulse Resp BP Pulse Ox 07/31/19 17:19 98.3 F 83 16 122/82 99 07/31/19 11:00 98.9 F 91 20 138/77 07/31/19 08:06 98.3 F 99 20 118/73 97 Weight Weight 221 lb 7.796 oz - Physical Examination General: NAD Cardiovascular: no m/r/g, RRR Respiratory: clear to auscultation bilaterally, non-labored breathing Abdominal: + bowel sounds, lochia, no distention, appropriately TTP Extremities: negative homans (B) Skin: CS incision dry & intact, no rash Neurological: no gross focal deficits Psychiatric: A&Ox3, normal affect Result Diagrams: 07/31/19 05:40 Additional Labs: Post Labs Blood Type B POSITIVE 07/29/19 20:23 Hep Bs Antigen Non-Reactive S/CO (NonReactive) 07/29/19 20:23
[2019-08-01] MEDS: Ibuprofen 800 MG TAB PO SCH ×2 (05:57→14:43)
[2019-08-01 08:02] VITALS: BP 117/74; TEMP 98.7
[2019-08-01] MEDS: Prenatal Vitamin 1 TAB PO SCH (08:58)
[2019-08-01] MEDS: Docusate Calcium (SURFAK) 240 MG CAP PO SCH (08:58)
[2019-08-01] MEDS: Ferrous Sulfate 325 MG TAB PO SCH (08:58)
== END 2019-08-01 15:27 | disposition home or self-care (01) | DRG 807 ==
LOC: L&D 19:01 → 3SW 07-30 20:46
PROVIDERS: ADMIT Obstetrics & Gynecology; ATTEND Obstetrics & Gynecology
PROC: 10E0XZZ Delivery of Products of Conception, External Approach (ICD-10-PCS; principal; 2019-07-30)
PROC: 10907ZC Drainage of Amniotic Fluid, Therapeutic from Products of Conception, Via Natural or Artificial Opening (ICD-10-PCS; 2019-07-30)
PROC: 3E0P7VZ Introduction of Hormone into Female Reproductive, Via Natural or Artificial Opening (ICD-10-PCS; 2019-07-30)
PROC: 3E033VJ Introduction of Other Hormone into Peripheral Vein, Percutaneous Approach (ICD-10-PCS; 2019-07-30)
DX: O80 Encounter for full-term uncomplicated delivery (principal); Z37.0 Single live birth; Z3A.39 39 weeks gestation of pregnancy
CPT/HCPCS: 36415; 85027; 86780; 86850; 86900; 86901; 87340; J2590